=== PATIENT | female | born 1990 | race Caucasian/White ===

== ENCOUNTER → 2022-06-07 | Outpatient (CLI) | payer BC ==
[2022-06-07 15:34] LABS: BASO # 0.1 10^3/uL (0.0-0.2); BASO % 0.9 % (0.0-1.0); EOS # 0.3 10^3/uL (0.0-0.5); EOS % 2.8 % (0.0-3.0); HEMATOCRIT 39.5 % (36.0-47.0); LYMPH # 3.3 10^3/uL (1.5-5.0); LYMPH % 34.1 % (24.0-44.0); MEAN CORPUSCULAR HEMOGLOBIN 28.4 pg (27.0-33.0); MEAN CORPUSCULAR HGB CONC 32.9 g/dl (32.0-36.5); MEAN CORPUSCULAR VOLUME 86.2 fl (80.0-96.0); MONO # 0.9 10^3/uL (0.0-0.8); NEUTROPHILS # 5.1 10^3/uL (1.5-8.5); NEUTROPHILS % 52.9 % (36.0-66.0); PLATELET COUNT, AUTOMATED 344 10^3/uL (150-450); RED BLOOD COUNT 4.58 10^6/uL (4.00-5.40); WHITE BLOOD COUNT 9.6 10^3/uL (4.0-10.0)
[2022-06-07 16:48] LABS: ALT/SGPT 29 U/L (12-78); BILIRUBIN,TOTAL 0.3 MG/DL (0.2-1.0); BLOOD UREA NITROGEN 16 MG/DL (7-18); CALCIUM LEVEL 9.4 MG/DL (8.5-10.1); CARBON DIOXIDE LEVEL 25 MEQ/L (21-32); CHLORIDE LEVEL 105 MEQ/L (98-107); CHOLESTEROL LEVEL 195 MG/DL (<200); CHOLESTEROL RISK RATIO 2.746 (<5); CREATININE FOR GFR 0.79 MG/DL (0.55-1.30); GLOMERULAR FILTRATION RATE > 60.0 (>60); GLUCOSE, FASTING 90 MG/DL (70-100); HDL CHOLESTEROL 71 MG/DL (>40); LDL CHOLESTEROL 103 MG/DL (<100); NON-HDL-C 124 MG/DL; POTASSIUM SERUM 3.9 MEQ/L (3.5-5.1); SODIUM LEVEL 137 MEQ/L (136-145); TOTAL PROTEIN 7.6 GM/DL (6.4-8.2); TRIGLYCERIDES LEVEL 103 MG/DL (<150)
== END ==
LOC: M PLALAB 14:04
PROVIDERS: ATTEND Physician Assistant
DX: Z00.00 Encounter for general adult medical examination without abnormal findings (principal)

== ENCOUNTER → 2022-09-05 | Outpatient (REF) | payer BC | LOC: M SFHCPLAZ 13:09 | PROVIDERS: ATTEND Physician Assistant | DX: Z12.4 Encounter for screening for malignant neoplasm of cervix (principal) | CPT/HCPCS: 87624; G0123 ==

== ENCOUNTER → 2022-09-19 | Outpatient (CLI) | payer BC | LOC: M SOG 13:02 | PROVIDERS: ATTEND Physician Assistant | DX: M79.644 Pain in right finger(s) (principal) ==

== ENCOUNTER → 2022-09-25 | Outpatient (CLI) | payer BC ==
[~2022-09-25] MED LIST: CLAR1TAB13 PO; D32000CA PO; NORE1TAB94 PO; VITMTA PO
== END ==
LOC: M LABSMTC 08:59
PROVIDERS: ATTEND Orthopaedic Surgery Hand Surgery
DX: Z01.812 Encounter for preprocedural laboratory examination (principal); Z11.52 Encounter for screening for COVID-19

== ENCOUNTER 2022-10-02 07:19 | Day surgery (SDC) | payer BC ==
[~2022-10-02] VITALS: Ht 167.6 cm; Wt 104.2 kg
[2022-10-02] MEDS ORDERED: LR 1,000 ML IV SCH ×2 (07:35→11:15)
[2022-10-02] MEDS ORDERED: propofoL 200 MG/20 ML VIAL As Ordered ONE (09:35)
[2022-10-02] MEDS ORDERED: MIDAZOLAM INJ 2MG/2ML VIAL As Ordered ONE (09:35)
[2022-10-02] MEDS ORDERED: LIDOCAINE 2% 100MG/5ML SDV (FOR ANES.) As Ordered ONE (09:35)
[2022-10-02] MEDS ORDERED: fentaNYL 100 MCG/2 ML INJECTION As Ordered ONE (09:36)
[2022-10-02] MEDS ORDERED: BACITRACIN OINTMENT 30GM TUBE As Ordered ONE (10:01)
[2022-10-02] MEDS ORDERED: ONDANSETRON 4MG 2ML VIAL As Ordered ONE (10:20)
[2022-10-02] MEDS ORDERED: ACETAMINOPHEN 1000MG 100ML IV BAG As Ordered ONE (10:22)
[2022-10-02] MEDS ORDERED: ceFAZolin 2 GM/D5W 50 ML IV BAG As Ordered ONE (10:29)
[2022-10-02] MEDS ORDERED: BUPIVACAINE HCL 0.25% 10ML VIAL As Ordered ONE (10:31)
[2022-10-02] MEDS ORDERED: KETOROLAC 60MG 2ML VIAL As Ordered ONE (10:43)
[2022-10-02] MEDS ORDERED: ONDANSETRON 4MG 2ML VIAL IV PRN (11:15)
[2022-10-02] MEDS ORDERED: oxyCODONE 5MG TAB PO PRN (11:15)
[2022-10-02] MEDS ORDERED: fentaNYL 100 MCG/2 ML INJECTION IV PRN (11:15)
[2022-10-02] MEDS ORDERED: MORPHINE 2 MG/ML 1ML VIAL IV PRN (11:15)
[2022-10-02] MEDS ORDERED: PERC5TAB12 PO (11:20)
[2022-10-02 12:41] VITALS: BP 125/77
== END 2022-10-02 12:59 | disposition home or self-care (01) ==
LOC: M SDC 07:19
PROVIDERS: ATTEND Orthopaedic Surgery Hand Surgery
DX: L60.9 Nail disorder, unspecified (principal); M79.644 Pain in right finger(s); Z88.0 Allergy status to penicillin
CPT/HCPCS: 11750; 26951; 76000; 81025; 87635; 88305; J0131; J0690; J1100; J1885; J2250; J2405; J3010; S0020

== ENCOUNTER → 2022-10-05 | Outpatient (CLI) | payer BC ==
[~2022-10-05] MED LIST changes: +PERC5TAB12 PO
== END ==
LOC: M SOG 07:54
PROVIDERS: ATTEND Orthopaedic Surgery Hand Surgery
DX: M79.644 Pain in right finger(s) (principal); Z89.021 Acquired absence of right finger(s)

== ENCOUNTER 2023-09-10 07:03 | Day surgery (SDC) | payer BC ==
[~2023-09-10] VITALS: Ht 170.2 cm; Wt 112.5 kg
[~2023-09-10 07:03] MED LIST changes: +LIDOCAINE W/EPINEPHRINE 1% 20ML VIAL XX ONE; +SODIUM BICARBONATE 8.4% INJ 50MEQ 50ML VIAL XX ONE
[2023-09-10] MEDS ORDERED: LR 1,000 ML IV SCH (07:20)
[2023-09-10] MEDS ORDERED: BACITRACIN OINTMENT 30GM TUBE As Ordered ONE (08:15)
[2023-09-10] MEDS ORDERED: LIDOCAINE 1% MDV 20ML VIAL As Ordered ONE (08:26)
[2023-09-10 09:03] VITALS: BP 145/83; TEMP 97.8; O2SAT 96
[2023-09-10] MEDS ORDERED: LIDOCAINE 1% SDV 30ML VIAL XX ONE (09:15)
== END 2023-09-10 09:27 | disposition home or self-care (01) ==
LOC: M SDC 07:03
PROVIDERS: ATTEND Orthopaedic Surgery Hand Surgery
DX: L60.8 Other nail disorders (principal); M79.644 Pain in right finger(s); Z88.0 Allergy status to penicillin

== ENCOUNTER → 2024-12-04 | Outpatient (CLI) | payer BC ==
[~2024-12-04] MED LIST changes: -LIDOCAINE W/EPINEPHRINE 1% 20ML VIAL XX ONE; -SODIUM BICARBONATE 8.4% INJ 50MEQ 50ML VIAL XX ONE
[2024-12-04 14:22] LABS: HEMATOCRIT 42.2 % (36.0-47.0); HEMOGLOBIN 13.8 g/dl (12.0-15.5); MEAN CORPUSCULAR HEMOGLOBIN 29.2 pg (27.0-33.0); MEAN CORPUSCULAR HGB CONC 32.7 g/dl (32.0-36.5); MEAN CORPUSCULAR VOLUME 89.4 fl (80.0-96.0); PLATELET COUNT, AUTOMATED 326 10^3/uL (150-450); RED BLOOD COUNT 4.72 10^6/uL (4.00-5.40); WHITE BLOOD COUNT 8.5 10^3/uL (4.0-10.0)
[2024-12-04 14:45] LABS: HEMOGLOBIN A1c 5.1 % (4.0-6.0)
[2024-12-04 14:51] LABS: CHOLESTEROL RISK RATIO 2.96 (<5); HDL CHOLESTEROL 66.4 MG/DL (>40); LDL CHOLESTEROL 107.6 MG/DL (<100); NON-HDL-C 130.6 MG/DL
[2024-12-04 14:52] LABS: FERRITIN 42.2 NG/ML (7.3-270.7); FREE T4 1.18 NG/DL (0.89-1.76); PERCENT SATURATION 40.9 % (13.2-45.0); THYROID STIMULATING HORMONE 1.253 uIU/ML (0.55-4.78)
== END ==
LOC: M PLALAB 12:16
PROVIDERS: ATTEND Nurse Practitioner Family
DX: F39 Unspecified mood [affective] disorder (principal)

== ENCOUNTER → 2024-12-24 | Outpatient (CLI) | payer BC ==
[2024-12-26 07:43] LABS: ALMOND IGE FOOD < 0.10 kU/L (<0.10); BRAZIL NUT CLASS IGE <0.10 ABSENT (<0.10); BRAZIL NUT IGE < 0.10 kU/L (<0.10); CASHEW NUT IGE FOOD < 0.10 kU/L (<0.10); CODFISH IGE FOOD < 0.10 kU/L (<0.10); COWS MILK FOOD < 0.10 kU/L (<0.10); EGG WHITE FOOD < 0.1 kU/L (<0.10); HAZELNUT IGE FOOD < 0.10 kU/L (<0.10); MACADAMIA NUT < 0.10 kU/L (<0.10); MACADAMIA NUT CLASS IGE <0.10 ABSENT (<0.10); PEANUT IGE FOOD < 0.10 kU/L (<0.10); SALMON IGE FOOD < 0.10 kU/L (<0.10); SCALLOP IGE FOOD < 0.10 kU/L (<0.10); SESAME SEED IGE FOOD < 0.10 kU/L (<0.10); SHRIMP IGE FOOD < 0.10 kU/L (<0.10); SOYBEAN IGE FOOD < 0.10 kU/L (<0.10); TUNA IGE FOOD < 0.10 kU/L (<0.10); WALNUT IGE FOOD < 0.10 kU/L (<0.10); WHEAT IGE FOOD < 0.10 kU/L (<0.10)
== END ==
LOC: M LAB 10:24
PROVIDERS: ATTEND Nurse Practitioner Family
DX: T78.40XA Allergy, unspecified, initial encounter (principal)